=== PATIENT | female | born 1970 | race Caucasian/White ===

== ENCOUNTER 2017-07-19 08:49 | Observation (INO) | payer OTHER ==
[2017-07-19] MEDS ORDERED: Clindamycin 900 MG IVPREMIX(* 900 MG/50 ML SDV IV ONE (09:30)
[2017-07-19] MEDS ORDERED: Ondansetron INJ* 2 MG/ML VIAL ONE ×2 (09:32→10:45)
[2017-07-19] MEDS ORDERED: Scopolamine 1.5 mg* PATCH ONE (09:32)
[2017-07-19] MEDS ORDERED: Naproxen TAB* 250 MG ONE (09:32)
[2017-07-19] MEDS ORDERED: oxyCODONE SR TAB(*) 10 MG TAB.SR ONE (09:33)
[2017-07-19] MEDS ORDERED: LORazepam TAB(*) 1 MG ONE (09:33)
[2017-07-19 09:47] LABS: ABS Basophils 0 10^3/ul (0-0.2); ABS Eosinophils 0.1 10^3/ul (0-0.6); ABS Lymphocytes 0.9 10^3/ul (1.0-4.8); ABS Monocytes 0.4 10^3/ul (0-0.8); ABS Neutrophils 4.4 10^3/ul (1.5-7.7); ABS Nucleated RBC 0 10^3/ul; Eosinophil % 2.3 % (0-6); Hematocrit 38 % (35-47); Lymphocyte % 15.9 % (25-47); Mean Corpuscular HGB Conc 34 g/dl (31-36); Mean Corpuscular Hemoglobin 30 pg (27-31); Mean Corpuscular Volume 88 fL (80-97); Mean Platelet Volume 8.8 um3 (7.4-10.4); Nucleated Red Blood Cells % 0; Platelet Count 230 10^3/ul (150-450); Red Blood Count 4.35 10^6/ul (4.0-5.4); Red Cell Distribution Width 14 % (10.5-15); White Blood Count 5.9 10^3/ul (3.5-10.8)
[2017-07-19 09:51] LABS: INR 0.9 (0.77-1.02)
[2017-07-19 10:06] LABS: EGFR Non-African American 72.4 (>60)
[2017-07-19] MEDS ORDERED: KCL 10 MEQ/50 ML IVPREMIX* 10 MEQ/50 ML BAG ONE (10:21)
[2017-07-19] MEDS ORDERED: Naloxone* 0.4 MG/ML 1 ML VIAL ONE (10:45)
[2017-07-19] MEDS ORDERED: fentaNYL* 50 MCG/ML 5 ML VIAL (250 MCG VIAL) ONE (10:45)
[2017-07-19] MEDS ORDERED: Ketorolac INJ* 30 MG/ML 1 ML VIAL ONE (10:45)
[2017-07-19] MEDS ORDERED: Flumazenil* 0.1 MG/ML 5 ML MDV ONE (10:45)
[2017-07-19] MEDS ORDERED: Midazolam* 1 MG/ML 10 ML VIAL (10 MG) ONE (10:45)
[2017-07-19] MEDS ORDERED: Lidocaine 1% INJ* 10 MG/ML 30 ML SDV ONE ×2 (10:46→10:55)
[2017-07-19] MEDS ORDERED: Iodixanol* (CONTRAST) 320 MG/ML 100 ML SDV ONE (10:46)
[2017-07-19] MEDS ORDERED: nitroGLYCERIN DRIP* 25,000 MCG/250 ML BTL ONE (10:47)
[2017-07-19] MEDS ORDERED: Heparin 2 UNITS/ML IVPREMIX* 2,000 ML IV ONE (10:54)
[2017-07-19] MEDS ORDERED: Iohexol 350 (CONTRAST) 200 ML MDV IV ONE (10:59)
[2017-07-19] MEDS ORDERED: KCL 10 MEQ/50 ML IV ONE (11:00)
[2017-07-19] MEDS ORDERED: HYDROmorphone PCA* 20 MG/20 ML PCA.SYRING PCA SCH (12:00)
[2017-07-19] MEDS ORDERED: fentaNYL* 50 MCG/ML 2 ML VIAL (100 MCG VIAL) ONE (12:38)
[2017-07-19] MEDS ORDERED: PROCHLORPERAZINE INJ 5 MG/ML 2 ML VIAL ONE (13:01)
[2017-07-19] MEDS ORDERED: HYDROmorphone INJ* 1 MG/ML CARPUJECT SYRINGE ONE (13:09)
[2017-07-19] MEDS ORDERED: HYDROmorphone PCA* 20 MG/20 ML PCA.SYRING ONE (13:21)
[2017-07-19] MEDS ORDERED: LORazepam TAB(*) 0.5 MG PO PRN (13:30)
[2017-07-19] MEDS ORDERED: PROCHLORPERAZINE INJ 5 MG/ML 2 ML VIAL IV PRN (13:30)
--- NOTE | 2017-07-19 14:35 | RAD ---
CPT II Codes: G9500 Procedure(s) performed: * Pelvic arteriogram including the lower abdominal aorta, bilateral iliac arteries including the proximal portions of the superficial femoral arteries and femoral profundi. * Catheter arteriography of the bilateral uterine arteries. * Catheter embolization of the bilateral uterine arteries. Date of service: July 19, 2017 Indication for procedure: Heavy menstrual bleeding in the presence of multiple uterine fibroids Comparison: MRI of the pelvis July 06, 2017 Contrast: 70 mL Omnipaque 350 Fluoroscopy Time: 33.4 minutes Vessels Accessed: Percutaneous access was obtained with ultrasound guidance in the right common femoral artery in the retrograde direction towards the heart. Catheter arteriography was performed with the catheter tip in the following arteries: Aorta, left common iliac artery, Bilateral internal iliac arteries and Bilateral uterine arteries. Anesthesia: Conscious sedation with IV Fentanyl and Versed as well as local 1% lidocaine injected locally at the arteriotomy site. Conscious sedation time: Timeout: 1108 hours Case end: 1306 hours Total conscious sedation time: 1 hour and 58 minutes Additional medications: * 700 mcg IA nitroglycerin injected intermittently throughout the course of the procedure to alleviate arterial spasm. * Intra-arterial Toradol, 15 mg injected into each uterine artery, for a total of 30 mg intra-arterial. * Intravenous Toradol, 30 mg. * Prior to the procedure the patient received: Ativan 1 mg p.o. Naproxen sodium 250 mg p.o. OxyContin 10 mg p.o. Scopolamine patch 1.5 mg transdermal applied to the mastoid process. Zofran 4 mg IV Compazine 5 mg IV at the conclusion of the case Antibiotic prophylaxis was provided by Clindamycin 900 mg IV PROCEDURE NOTE AND INTRAPROCEDURAL IMAGING FINDINGS: Immediately prior to the procedure the patient signed consent after thoroughly discussing all risks and benefits. The patient was positioned on the fluoroscopy table in the supine position and the bilateral groins were shaved, prepped and draped in standard sterile fashion. Using fluoroscopic imaging the location of the right common femoral head was marked externally with a skin marker on the patient's groin. Utilizing sonographic guidance and palpation the right common femoral artery was cannulated overlying the right femoral head with an 18-gauge needle. An ultrasound image was saved. A [place] wire was slowly and smoothly advanced to the aortic bifurcation under fluoroscopic imaging. No buckling of the wire was visualized to indicate dissection. Over the wire a 5-[place] SideArm sheath was advanced under fluoroscopic control until the tip terminated at the right external iliac artery. Utilizing a 0.035" wire and 5-[place] C2 catheter the contralateral left common iliac artery was accessed. The wire was advanced under fluoroscopic control to the proximal left superficial femoral artery. The C2 catheter was removed and over the wire a 5 [place] Merit Impress catheter was advanced over the iliac bifurcation and the reverse curve was formed in the lower abdominal aorta. Utilizing the reverse curve catheter and the wire the ipsilateral right common iliac artery was selected. With the tip of the catheter in the proximal most portion of the right internal iliac artery, angiography was performed to detail the branches of the right internal iliac artery and to locate the ostium of the right uterine artery. Arteriograms in multiple oblique projections were performed to best discern the branch point of the uterine artery. Once the uterine artery was identified, a microcatheter and microwire were advanced into the parent catheter and, in conjunction with contrast angiography, the uterine artery was identified and selected with the microcatheter and wire system. Prior to embolization, contrast injection into the horizontal portion of the uterine artery demonstrated a possible cervicovaginal branch headed in the caudal direction. The wire was reinserted and the microcatheter was advanced beyond its branch point. Embolization occurred medial relative to the potential cervicovaginal branch. Intra-arterial nitroglycerin was injected intermittently to alleviate arterial spasm. Under fluoroscopic control 1 vial HydroPearls 600 um, 1 vial Embospheres 500-700 um and ~4/5 vial 1 vial HydroPearls 800 um were slowly injected into the right uterine artery to near complete stasis. Towards the end of embolization 15 mg of Toradol was injected intra-arterially. The microcatheter was pulled back into the more proximal descending portion of the uterine artery and contrast angiography depicted near complete stasis of the uterine artery. The microcatheter and microwire were removed. Contrast arteriography through the 5-[place] catheter in the right internal iliac artery demonstrated patency and brisk flow through all branches of the internal iliac artery with the exception of the right uterine artery which demonstrates near complete stasis. The 0.035" wire was reinserted into the 5-[place] catheter and the system was utilized to access the contralateral left internal iliac artery. With the tip of the 5 [place] Merit Impress catheter in the proximal most portion of the left internal iliac artery, angiography was performed to detail the branches of the left internal iliac artery and to locate the ostium of the left uterine artery. Arteriograms in multiple oblique projections were performed to best discern the branch point of the uterine artery. The uterine artery was selected and cannulated utilizing the combination 0.035" wire and 5-[place] catheter. In order to ensure maximum arterial inflow for the purpose of particle distribution, the microcatheter and wire system were advanced into the 5-[place]an catheter securing access into the uterine artery. Under careful fluoroscopic control access was maintained in the uterine artery while pushing back the 5-[place] catheter until the tip resided more superiorly in the internal iliac artery. Prior to embolization, contrast injection into the horizontal portion of the left uterine artery demonstrated no large, obvious collateral blood flow to the ovary or a definite cervicovaginal branch descending inferiorly. Intra-arterial nitroglycerin was injected intermittently to alleviate arterial spasm. Under fluoroscopic control 1 vial HydroPearls 600 um, 1 vial Embospheres 500-700 um, ~1/5 vial 1 vial HydroPearls 800 um and 1 vial Embospheres 700-900 um were slowly injected into the left uterine artery to near complete stasis. Towards the end of embolization 15 mg of Toradol was injected intra-arterially. The microcatheter was pulled back into the more proximal descending portion of the uterine artery and contrast angiography depicted near complete stasis of the uterine artery. The microcatheter and microwire were removed. Contrast arteriography through the 5-[place]an catheter in the left internal and left common iliac arteries demonstrated patency and brisk flow through all branches of the internal iliac artery with the exception of the left uterine artery which demonstrates near complete stasis. Contrast is seen filling the left external iliac artery as far as the femoral bifurcation. The 5-[place] catheter and 0.035" wire were utilized to access the left external iliac artery which allowed a safe removal of the 5-[place] Impress catheter. The wire was then removed from the sheath. The access sheath was removed and pressure was held at the common femoral arteriotomy for approximately 15 minutes. There were no signs of bleeding at the right groin access site and the site was dressed with sterile gauze and Tegaderm. The patient tolerated the procedure well and was transferred to the short stay recovery unit in stable condition for routine overnight observation and pain and nausea control. SUMMARY OF PROCEDURE, IMAGING FINDINGS AND INTERVENTIONS PERFORMED: 1. Diagnostic studies performed: * Arterial access was obtained at the right common femoral artery in the retrograde direction (i.e. towards the heart) with ultrasound guidance. A sonographic image was recorded. * Diagnostic catheter angiography (necessary to perform the appropriate interventions) was performed with the catheter tip in the aorta, right common iliac artery, bilateral internal iliac arteries and bilateral uterine arteries. * Catheter arteriography was performed of the abdominal aorta, bilateral iliac arterial system and specifically the bilateral uterine arteries. 2. Interpretation of diagnostic studies performed: * Hypertrophy uterine arteries, dominant on the left, supplying the patient's enlarged fibroid uterus. * There is potentially a cervicovaginal branch identified at the right uterine artery. Care was taken to advance the microcatheter medially beyond the branch point of this artery so as not to directly embolize this branch artery. 3. Surgical interventions performed: * Near stasis embolization of the bilateral uterine arteries utilizing: * Right uterine artery: 1 vial HydroPearls 600 um, 1 vial Embospheres 500-700 um, ~4/5 vial 1 vial HydroPearls 800 um. * Left uterine artery: 1 vial HydroPearls 600 um, 1 vial Embospheres 500-700 um, ~1/5 vial 1 vial HydroPearls 800 um and 1 vial Embospheres 700-900 um 4. Interpretation of interventions performed: * Final arteriography demonstrated near complete stasis of the bilateral uterine arteries.. PLAN: 1. The patient will be admitted to short stay surgical unit for routine overnight observation including pain and nausea control. 2. Outpatient clinical and imaging follow-up according to the Interventional Radiology protocol.
--- NOTE | 2017-07-19 15:30 | PN ---
Progress Note - Progress Note Date of Service: 07/19/17 SOAP: Subjective: Pain controlled at "cramp" 1/10 pain. Denies nausea or emesis. Denies shortness of breath. Objective: Selected Entries 07/19/17 15:18 Temperature 97.9 F Pulse Rate 53 Respiratory 12 Rate Blood Pressure 115/53 (mmHg) O2 Sat by Pulse 97 Oximetry Oxygen Flow 2 Rate Sleeping, but arousable to voice. 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 Plan: 1. Standard Interventional Radiology post UFE protocol with the following added (already ordered). 2. Ativan 0.5 mg IV Q 6 hours PRN for anxiety. 3. Compazine 5 mg IV Q 6 hours PRN for nausea or emesis not controlled with Zofran and Scopoplamine. 4. Bedrest with RLE straight until 1900 hours. 5. D/C Dye at 1900 hours.
[2017-07-19] MEDS: Ketorolac INJ* 15 MG/ML 1 ML VIAL IV PUSH SCH ×2 (17:25→23:02)
[2017-07-19] MEDS: Ondansetron 40 MG VIAL* 2 MG/ML 20 ML VIAL IV SCH ×2 (17:26→23:03)
[2017-07-19] MEDS: NS 0.9% 1000 ML* 1,000 ML IV SCH ×3 (17:43→23:32)
--- NOTE | 2017-07-20 00:54 | HP ---
CC: Dr. Erwin * HISTORY AND PHYSICAL: DATE OF ADMISSION: 07/19/17 PROVIDER: Raina Vance NP PRIMARY CARE PROVIDER: Dr. Erwin. CONSULTING PROVIDER: Dr. Nick Anna. ATTENDING PHYSICIAN WHILE IN THE HOSPITAL: Dr. Anai Concepcion * (dictated by Raina Vance NP) CHIEF COMPLAINT: Elective embolization of uterine artery. HISTORY OF PRESENT ILLNESS: Ms. Romero is a 46-year-old female with a past medical history significant for anxiety, who presented to the hospital today for an elective embolization of the uterine artery. Ms. Romero has a longstanding history of painful menstruation with increased bleeding over the past year. She has a history of having 2 myomectomies in the past. She has been experiencing urinary frequency and reports that in the past 5 years, the symptoms have become more severe and has been experiencing urinary urgency and a sense of incomplete voiding of the bladder. She states that these symptoms become more severe during her menses. Due to the increased bleeding, the patient elected to have a uterine fibroid embolization. The patient denies any recent illnesses. Denies any fever or chills. We were asked to evaluate her for admission postoperatively after her uterine fibroid embolization. PAST MEDICAL HISTORY: Significant for: 1. Anxiety. 2. Rosacea. 3. Irritable bowel syndrome. 4. Premenopausal menorrhagia. 5. Fibroids. PAST SURGICAL HISTORY: 1. Myomectomy. 2. Hysteroscopy. HOME MEDICATIONS: Include: 1. Ferrous sulfate 325 mg 1 p.o. daily. 2. Probiotic 1 p.o. daily. 3. Motrin 200 mg 1 to 2 twice daily as needed. 4. Vitamin D 2000 units by mouth daily. 5. Finacea 15% apply 2 times daily as needed. 6. Chaste tree daily. 7. 5-HTP 200 mg daily. 8. Prolamine iodine daily. 9. Adrenal C Formula daily. 10. Nevaton Forte daily. 11. daily. 12. Zypan daily. ALLERGIES TO MEDICATIONS: No known drug allergies. FAMILY HISTORY: Father due to COPD. Mother with Bustamante's esophagus. She does have 1 brother. SOCIAL HISTORY: She denies any tobacco use. She does report occasional alcohol use. Denies any illicit drug use. 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 She is single and lives alone. Surrogate decision maker in the event she is unable to make her own decisions is her mother, Tr Romero, her phone number is . REVIEW OF SYSTEMS: There was no documented fever. There has been no significant weight change. She denies any sore throat, cough, or congestion. She denies any shortness of breath. Denies any orthopnea or nocturnal dyspnea. There was no chest pain. She denies any dysuria or urinary frequency. She denies any loss of consciousness. She denies any pruritus or skin ulcerations. She does report that she had an episode of dizziness two days ago, which was associated with taking has resolved. She denies any rashes or lesions. She denies any depression or anxiety currently. A review of 14 systems was completed and all others are negative. PHYSICAL EXAMINATION GENERAL: At this time, Ms. Romero is a 46-year-old female, who postoperatively appears drowsy, resting on the stretcher in PACU. She does not appear to be in any acute distress. VITAL SIGNS: As follows: Temperature was 97.9, heart rate was 53, respirations were 12, O2 saturation 97%, blood pressure 115/53. HEENT: Head is atraumatic, normocephalic. Eyes: EOMs are intact. Sclerae anicteric and not pale. Oral mucosa appeared to be dry. NECK: Supple. LUNGS: Clear to auscultation bilaterally. No wheezes, rales, or rhonchi. CARDIAC: S1, S2. Regular rate and rhythm. There are no murmurs, rubs, or gallops. ABDOMEN: Soft with mild tenderness. Bowel sounds are present x4. EXTREMITIES: Pulses are +1, pedal and tibial. She does have good sensation to light touch. She is able to move all 4 extremities with 5/5 strength. NEUROLOGIC: She is drowsy. She does open her eyes to name and is able to respond appropriate to all questions and answer. Her speech is clear. There are no gross focal deficits. SKIN: Intact. DIAGNOSTIC STUDIES AND LABORATORY DATA: WBCs were 5.9, RBCs were 4.35, hemoglobin 13.0, hematocrit was 38, platelet count was 230. INR was 0.90, APTT was 26.7. Sodium 140, potassium was 3.4, chloride was 106, carbon dioxide was 27 , BUN was 11, creatinine 0.84, glucose was 104, calcium was 9.2. Beta hCG was less than 0.60. ASSESSMENT AND PLAN: Ms. Romero is a 46-year-old female who presented to the hospital today for elective uterine fibroid embolization. In the immediate postoperative period, she has no complaints. We were asked to admit her under observation for: 1. Uterine fibroid embolization. Management per Dr. Anna's orders. 2. Anxiety. The patient has Ativan as needed. She reports she does not take medications at home. She currently reports no issue with anxiety at this time. 3. FEN: She can have a regular diet. 4. DVT prophylaxis: I will put her on SCDs postoperatively. 5. Code status: She is a full code. TIME SPENT: Time spent on this admission was approximately 60 minutes, greater than half that time was spent [id number] with the patient obtaining history and physical and reviewing the history and physical in the chart, the other half of the time was spent going over the plan of care with the patient and implementing my plan of care. I did discuss this with my attending, Dr. Anai Concepcion, she is in agreement with my plan. RAINA VANCE, ATHLETIC SCOUT [id number]/[facility] #: [id number] MTDD
[2017-07-20] MEDS: NS 0.9% 1000 ML* 1,000 ML IV SCH (04:40)
[2017-07-20] MEDS: Ketorolac INJ* 15 MG/ML 1 ML VIAL IV PUSH SCH (05:02)
[2017-07-20] MEDS: Ondansetron 40 MG VIAL* 2 MG/ML 20 ML VIAL IV SCH (05:05)
--- NOTE | 2017-07-20 08:32 | PN ---
Progress Note - Progress Note Date of Service: 07/20/17 SOAP: Subjective: Pain rated as 5/10. Denies nausea or emesis. +void, but noted a "few small red particles". Reports urine is clear and yellow otherwise. Denies CP or SOB. 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 Plan: 1. Transition IV to PO medications. 2. Advance diet. 3. Ambulate around unit at least every 2 hours with assistance. 4. Routine Interventional Radiology follow up will include RN clinic follow up telephone calls 07/23/17 and , 07/26/17. Clinic follow up in 6 weeks and 6 months. 5. Outpatient Rx regimen will include: Toradol 10 mg PO Q 6 hours x 3 days, dispense #15, 1 refill AFTER 3 days of Toradol, start Ibuprofen 600 mg PO every 6 hours x 3 days (DO NOT COMBINE TORADOL AND IBUPROFEN) [place] 5/325 1 or 2 tablets PO Q 6 hours PRN x 5 days, dispense #30 (thirty), no refills Ativan 0.5 mg PO Q 8 hours PRN x 3 days, dispense #10 (ten) Zofran 4 mg PO Q 6 hours x 5 days, dispense #30, 1 refill Scopoloamine 1.5 mg TD patch: on the morning of Sunday, replace current patch with new patch and wear x 3 days 6. Patient advised to purchase laxative tea (E.g. Smooth Move) and drink one cup daily x 1 week to avoid constipation.
[2017-07-20] MEDS ORDERED: HYDROcodone/ACETAMIN 5-325 MG* 1 TAB PO PRN (08:54)
[2017-07-20] MEDS ORDERED: Ondansetron TAB* 4 MG PO SCH (09:00)
[2017-07-20] MEDS ORDERED: Ketorolac TAB * 10 MG TAB PO SCH (09:00)
[2017-07-20 11:34] VITALS: BP 118/63
--- NOTE | 2017-07-22 00:15 | DS ---
CC: Dr. Erwin; Dr. Nick Anna * DISCHARGE SUMMARY: DATE OF ADMISSION: 07/19/17 DATE OF DISCHARGE: 07/20/17 PRIMARY CARE PROVIDER: Dr. Erwin. CONSULTING INTERVENTIONAL RADIOLOGIST: Dr. Nick Anna. MY ATTENDING WHILE IN THE HOSPITAL: Dr. Padmini Nelson.* (DICTATED BY SABRINA PECK) PRIMARY DISCHARGE DIAGNOSIS: Uterine fibroids, status post embolization. SECONDARY DISCHARGE DIAGNOSES: 1. Anxiety. 2. Rosacea. 3. Irritable bowel syndrome. 4. Premenopausal menorrhagia. STUDIES DONE WHILE IN THE HOSPITAL: None. MEDICATIONS AT DISCHARGE: Include: 1. Vitamin D3 2000 units p.o. daily. 2. Probiotic 1 cap p.o. daily. 3. Hydroxytryptophan 200 mg p.o. daily. 4. Azelaic acid 15% topical b.i.d. as needed. 5. Ferrous sulfate 325 mg p.o. daily. 6. Numerous supplements. 7. [place] 5/325 one to two tabs p.o. q.6 hours as needed for pain. 8. Toradol 10 mg p.o. q.6 hours x3 days. 9. Lorazepam 0.5 mg p.o. q.8 hours as needed for anxiety x3 days. 10. Zofran 4 mg p.o. q.6 hours for 5 days. 11. Scopolamine patch x1. HOSPITAL COURSE: This is a brief summary of the patient's presentation. For more details, please see history and physical from Dr. Nick Anna on 06/20/17 and the consultation report by Raina Vance NP, on 07/19/17. In brief, the patient is a 46-year-old female with past medical history significant for the above, who presented to the hospital on 07/19/17 for elective uterine artery embolization, which was performed by Dr. Nick Anna without complications. The patient underwent this procedure due to increased menstrual bleeding as well as urgency and sense of incomplete voiding of the bladder as well as painful menstruation. The patient has had 2 previous myomectomies, which were not effective. Please see the radiology report and cardiac catheterization report from Dr. Nick Anna on 07/19/17 for more details on these procedures. The patient had pain controlled with BAND INSTRUMENT MAKER after her procedure. The patient also was controlled on Ativan, Compazine. The patient had no complications with her access site. The patient had 5/10 pain and slight amount of hematuria on 07/20/17. This was believed to be due to trauma from Dye insertion and removal, not bleeding from her uterine artery embolization. The patient was able to ambulate independently. The patient tolerates p.o. medications with adequate control of her pain and tolerated a regular diet. The patient was anxious for discharge home in the afternoon of . The patient was prescribed medications as above with strict instructions, by Dr. Anna, for their use. The patient was stable and amenable for discharge on 07/20/17. PHYSICAL EXAM ON THE DAY OF DISCHARGE: General: The patient is a 46-year-old female, who appears stated age and sitting comfortably in bed, in no acute distress. Vital Signs: At the time of discharge, temperature 98.8, pulse rate 79, respiratory rate 17, oxygen saturation 99% on room air, blood pressure 118/ 63. HEENT: Head, normocephalic, atraumatic. Sclerae anicteric. No conjunctival injection. Nasal mucosa is moist. Oral mucosa moist. No pharyngeal erythema, discharge, or exudate. Neck: Supple, nontender. No lymphadenopathy. No carotid bruit auscultated. No JVD. Cardiac: Regular rate and rhythm. No clicks, murmurs, gallops, or rubs. Pulses 2+ in the bilateral dorsalis pedis, posterior tibial, and radial areas. No lower extremity edema noted. No calf tenderness. Respiratory: Clear to auscultation bilaterally. No wheezes, rales, or rhonchi. Good air exchange bilaterally. Abdomen: Soft, tenderness to palpation over the bilateral lower quadrants. No guarding or rebound. No hepatosplenomegaly. No abdominal bruits auscultated. Bowel sounds present. Normoactive in all 4 quadrants. Genitourinary: No suprapubic or CVA tenderness. Skin: Clean, dry, intact. No rash. Surgical incision, clean, dry, and intact. Neuro: Cranial nerves II through XII intact. No focal deficits. Normal gait. Alert and oriented x3. Psychiatric: Pleasant and cooperative. DISCHARGE PLAN: The patient will be discharged to home in stable condition with pain control as outlined in Dr. Anna's progress note from 07/20/17, which have been explained thoroughly to the patient and included with her discharge instructions. The patient should follow up with Dr. Anna as scheduled and her primary care provider within 1 week for general medical management. The patient should return to the hospital for fevers, vaginal discharge, persistent pain, active bleeding at the puncture site, or severe abdominal bleeding. The patient should avoid strenuous activity for 1 week, avoid showering, engage in pelvic rest, and not drive while taking prescription pain medication. The patient should resume her usual diet. TIME SPENT: Approximately 60 minutes was spent on this discharge, 30 of which was spent [id number] with the patient obtaining history and physical and discussing treatment plan. SABIRNA PECK [id number]/[place] #: [id number] WEI
== END 2017-07-20 13:50 | disposition home or self-care (01) ==
LOC: CHICATH 08:49 → SSU 14:48
PROVIDERS: ADMIT Internal Medicine; ATTEND Radiology Diagnostic Radiology
DX: D25.9 Leiomyoma of uterus, unspecified (principal); N92.4 Excessive bleeding in the premenopausal period; F41.9 Anxiety disorder, unspecified; L71.9 Rosacea, unspecified; K58.9 Irritable bowel syndrome, unspecified; Z79.899 Other long term (current) drug therapy
CPT/HCPCS: 36415; 37243; 75736; 76937; 80048; 84702; 85025; 85610; 85730; 96374; 96375; 96376; 99156; 99157; A9270-GY; C1769; C1884; C1887; G0378; J0780; J1170; J1644; J1885; J2250; J2310; J2405; J3010; J3480

== ENCOUNTER 2017-12-06 09:23 | Day surgery (SDC) | payer OTHER ==
[~2017-12-06 09:23] MED LIST: Buffered Lidocaine 0.9% SYRIN* 5 ML/SYR SYRINGE INTRADERM ONE; Dexamethasone IV* 4 MG/ML 1 ML (4 MG) IV SLOW PU ONE; Famotidine IV* 10 MG/ML 2 ML (20 mg) IV ONE
[2017-12-06] MEDS ORDERED: Scopolamine 1.5 mg* PATCH ONE (09:26)
[2017-12-06] MEDS ORDERED: Famotidine IV* 10 MG/ML 2 ML (20 mg) ONE (09:26)
[2017-12-06] MEDS ORDERED: Dexamethasone IV* 4 MG/ML 1 ML (4 MG) ONE (09:26)
[2017-12-06] MEDS ORDERED: Buffered Lidocaine 0.9% SYRIN* 5 ML/SYR SYRINGE ONE (09:27)
[2017-12-06] MEDS ORDERED: Scopolamine 1.5 mg* PATCH TRANSDERM SCH (10:00)
[2017-12-06 10:12] LABS: Hematocrit 41 % (35-47); Mean Corpuscular HGB Conc 34 g/dl (31-36); Mean Corpuscular Hemoglobin 29 pg (27-31); Mean Corpuscular Volume 85 fL (80-97); Mean Platelet Volume 8.6 um3 (7.4-10.4); Platelet Count 261 10^3/ul (150-450); Red Blood Count 4.81 10^6/ul (4.00-5.40); Red Cell Distribution Width 14 % (10.5-15); White Blood Count 6.2 10^3/ul (3.5-10.8)
[2017-12-06] MEDS ORDERED: Midazolam* 1 MG/ML 2 ML VIAL (2 MG) ONE (11:05)
[2017-12-06] MEDS ORDERED: fentaNYL* 50 MCG/ML 2 ML VIAL (100 MCG VIAL) ONE (11:05)
[2017-12-06] MEDS ORDERED: Naloxone* 0.4 MG/ML 1 ML VIAL IV PRN (12:30)
[2017-12-06] MEDS ORDERED: Acetaminophen TAB* 325 MG PO PRN (12:30)
[2017-12-06] MEDS ORDERED: DiMENhydriNATE IV* 50 MG/ML VIAL IV PUSH PRN (12:30)
[2017-12-06] MEDS ORDERED: fentaNYL* 50 MCG/ML 2 ML VIAL (100 MCG VIAL) IV PRN (12:30)
[2017-12-06] MEDS ORDERED: oxyCODONE/Acetamin 5/325 MG* TAB PO PRN (12:30)
[2017-12-06] MEDS ORDERED: PROCHLORPERAZINE INJ 5 MG/ML 2 ML VIAL IV PRN (12:30)
[2017-12-06] MEDS ORDERED: Ketorolac INJ* 30 MG/ML 1 ML VIAL IV PRN (12:30)
[2017-12-06] MEDS ORDERED: Propofol* 10 MG/ML 20 ML BTL IV PUSH ONE (12:32)
[2017-12-06] MEDS ORDERED: Ondansetron INJ* 2 MG/ML VIAL ONE (12:32)
[2017-12-06] MEDS ORDERED: diPHENhydraMINE IV* 50 MG/ML 1 ml VIAL (BENADRYL) ONE (12:32)
[2017-12-06] MEDS ORDERED: Metoclopramide IV* 5 MG/ML 2 ML VIAL ONE (12:32)
[2017-12-06] MEDS ORDERED: Lidocaine 2% PF * 5 ML VIAL ONE (12:32)
[2017-12-06 14:03] VITALS: BP 106/67
--- NOTE | 2017-12-08 12:01 | OP ---
DATE OF OPERATION: 12/06/17 - [facility] DATE OF : 66 SURGEON: Adriana Samuels MD ANESTHESIA: General endotracheal. PRE-OP DIAGNOSIS: Fibroid uterus with persistent vaginal discharge after embolization. POST-OP DIAGNOSIS: Fibroid uterus with persistent vaginal discharge after embolization. OPERATIVE PROCEDURE: Hysteroscopy and dilation and curettage. MATERIALS TO LAB: Endometrial curettings. ESTIMATED BLOOD LOSS: Minimal. URINE OUTPUT: 25 cc. IV FLUIDS: 750 cc lactated Ringer's. INDICATIONS: This patient was a 47-year-old, 0, with a known history of enlarged fibroid uterus. The patient underwent an embolization in June 2017 and has substantial improvement in her bleeding; however, she had a persistent yellow discharge that was fairly heavy. Since the procedure, she passed multiple submucosal fibroids vaginally including two in the last week. The patient noted that the discharge had improved after the more recent fibroids have passed, but Dr. Anna, her interventional radiologist, recommended continuing with this procedure. She was extensively counseled and consent was signed. FINDINGS: Uterine cavity with apparent myometrial and fibroid tissue visible throughout. However, there were no distinct resectable fibroids visible. COMPLICATIONS: None. DESCRIPTION OF PROCEDURE: The risks, benefits, and alternatives were described to the patient and informed consent was obtained. The patient was taken to the operating room with IV running where general anesthesia was induced and found to be adequate. The patient was prepped and draped in the normal sterile fashion in the [facility] A time-out was performed. The bladder was emptied. A bivalved speculum was placed in the vagina and a single- tooth tenaculum was placed in the anterior cervix. The cervix was then gently dilated using Hanks dilators until a 6-mm MyoSure hysteroscope could be advanced through the cervix and into the uterine cavity. This was done with saline running managed with an [employer] fluid management system. On entry into the uterine cavity, there appeared to be an irregular contour with the appearance of fibroid-type tissue and some apparent endometrial tissue throughout the entire cavity. However, there were no visible discrete fibroids that could be removed. Once this was completed, the hysteroscope was removed and a curettage of the endometrial cavity was performed. All of the tissue that could be obtained was collected on Telfa. Curetting was notably very rough with a firm texture of tissue inside the cavity. After the curettage, there was only light bleeding present. Tenaculum was removed from the cervix and there was good hemostasis. The speculum was removed and the patient was returned to the supine position. The patient tolerated the procedure well. Sponge, lap, and needle counts were correct x2. [id number] #: [id number] MTDD
== END 2017-12-06 14:28 | disposition home or self-care (01) ==
LOC: OR 09:23
PROVIDERS: ATTEND Obstetrics & Gynecology
DX: D25.0 Submucous leiomyoma of uterus (principal); N89.8 Other specified noninflammatory disorders of vagina; K21.9 Gastro-esophageal reflux disease without esophagitis; R42 Dizziness and giddiness; K58.9 Irritable bowel syndrome, unspecified
CPT/HCPCS: 36415; 81025; 85027; 88305; A9270-GY; J1100; J1200; J2250; J2405; J2704; J2765; J3010